=== PATIENT | male | born 1960 | race Caucasian/White ===

== ENCOUNTER 2023-12-02 06:03 | Day surgery (SDC) | payer OTHER, SELFPAY ==
--- NOTE | 2023-11-27 13:57 | PTCARENOTE ---
Dr. Huang aware of pt's abnormal EKG and K 2.9. Pt was sent to the ER by PCP this am. Dr. Huang stated he is ok with PCP clearance addressing both and correcting potassium. Jackie in office made aware.
[2023-12-02] VITALS (8 sets, daily range): BP systolic 125–178; BP diastolic 84–112; BMI 41.8
[2023-12-02] MEDS: CELEBREX 200 MG PO (06:46)
[2023-12-02] MEDS: TYLENOL 1000 MG PO (06:46)
[2023-12-02] MEDS: NORMOSOL-R 1000 IV (06:47)
[2023-12-02 07:02] LABS: Potassium 2.9 mmol/L (3.5-5.1)
[2023-12-02] MEDS: DILAUDID 0.5 MG IV (09:00)
[2023-12-02] MEDS: DILAUDID 0.25 MG IV (09:13)
== END 2023-12-02 10:32 | disposition home or self-care (01) ==
LOC: SDS 06:03
PROVIDERS: ATTENDING PHYSICIAN Orthopaedic Surgery
DX: S52.562A Barton's fracture of left radius, initial encounter for closed fracture (principal); W00.0XXA Fall on same level due to ice and snow, initial encounter
CPT/HCPCS: 25607; 84132; C1713